=== PATIENT | female | born 1950 | race Caucasian/White ===

== ENCOUNTER 2022-07-27 16:33 | Emergency (ER) | payer MEDICARE, SELFPAY ==
[2022-07-27 16:50] VITALS: BP 155/103; PULSE 99; RESP 18; TEMP 37.2; O2SAT 100
--- NOTE | 2022-07-27 16:54 | PC.NURSE ---
in br to obtain ua spec.
--- NOTE | 2022-07-27 17:50 | ED.FEMALEGU ---
HPI - Female Genitourinary General Chief complaint: Urogenital-Female Stated complaint: uti Time Seen by Provider: 07/27/22 17:20 Source: patient, RN notes reviewed and old records reviewed History of Present Illness HPI Narrative: 71-year-old female who presents to [facility] care with complaints of urgency, frequency, and hesitancy with urination. Patient reports that symptoms started yesterday and patient has had previous history of UTI's. Patient took a dose of amoxicillin at 1630. Patient denies any flank pain. MD elicited complaint: UTI Onset (ago): day(s) (1) Severity scale (1-10): 3 Related Data Allergies Allergy/AdvReac Type Severity Reaction Status Date / Time clindamycin Allergy Unknown Unknown Verified 07/27/22 16:35 vancomycin Allergy Unknown Unknown Verified 07/27/22 16:35 sulfamethoxazole Allergy Unknown Verified 07/27/22 17:20 [From ] trimethoprim [From ] Allergy Unknown Verified 07/27/22 17:20 ct dye Allergy Unknown Uncoded 07/27/22 17:20 Review of Systems Review of Systems: CONSTITUTIONAL: Denies fever, chills, or sweats. EYES: Denies visual changes, redness, or discharge. ENT: Denies rhinorrhea, congestion, sore throat, or otalgia. CARDIOVASCULAR: Denies chest pain, palpitations, or edema. RESPIRATORY: Denies cough or dyspnea. GASTROINTESTINAL: suprapubic abdominal pain,no nausea, vomiting, or diarrhea. GENITOURINARY: Positive for dysuria or hematuria. SKIN: Denies rash or itching. MUSCULOSKELETAL: Denies back pain, joint pain, or myalgia. NEUROLOGIC: Denies headache, numbness, or weakness. PSYCHIATRIC: Denies anxiety or depression. All systems reviewed & are unremarkable except as noted in HPI and below PMFSH Past Medical History Medical History (Updated 07/29/22 @ 16:33 by Eva Max NP) UTI (urinary tract infection) Surgical History Surgical History (Updated 07/29/22 @ 16:33 by Eva Max NP) History of hysterectomy Family History Family History Other Family history of gynecological problem Family history of malignant neoplasm of breast in first degree relative Social History Social History (Updated 07/29/22 @ 16:36 by Eva Max NP) Smoking status: Never smoker Alcohol intake: current Alcohol use details: rare social use Substance use type: does not use Living arrangements: with family Gender identity (if verbalized by the patient): Female Comments At time of signature, agree with nursing past medical, surgical, social and family history. There is no relevant family history pertinent to the presenting complaint Exam Narrative: GENERAL: Well-appearing, well-nourished, and in no acute distress. HEAD: Normocephalic, atraumatic. EYES: PERRLA and EOMI. ENT: Nares clear, no rhinorrhea or epistaxis. Mucous membranes moist.TM's normal with good light reflex, throat pink with no lesions or tonsil swelling. NECK: Supple.no lymphadenopathy CHEST: Clear to auscultation. No respiratory distress.SAO2 100% on room air HEART: Regular rate and rhythm. No murmur heard. Normal peripheral pulses. ABDOMEN: Soft, supra pubic tender, nondistended, normal active bowel sounds.no CVA tenderness noted on examination EXTREMITIES: Normal range of motion. No edema. SKIN: Warm, dry, no rash. NEURO: No focal deficits. Alert and oriented x3. Course Course Level of Care: Express Care Visit Vital Signs Vital signs: Vital Signs Temperature 37.2 C 07/27/22 16:50 Pulse Rate 99 07/27/22 16:50 Respiratory Rate 18 07/27/22 16:50 Blood Pressure 155/103 H 07/27/22 16:50 Pulse Oximetry 100 07/27/22 16:50 Oxygen Delivery Room Air 07/27/22 16:50 Temperature 37.2 C 07/27/22 16:50 Pulse Rate 99 07/27/22 16:50 Respiratory Rate 18 07/27/22 16:50 Blood Pressure 155/103 H 07/27/22 16:50 Pulse Oximetry 100 07/27/22 16:50 Oxygen Delivery Room Air 07/27/22 16:50 MDM
== END 2022-07-27 18:00 | disposition home or self-care (01) ==
PROVIDERS: Emergency Provider Registered Nurse
DX: N39.0 Urinary tract infection, site not specified (principal)
CPT/HCPCS: 81003; 87086; 99213; G0463

== ENCOUNTER 2022-08-26 08:18 | Emergency (ER) | payer MEDICARE, SELFPAY ==
--- NOTE | 2022-08-26 08:23 | ED.FEMALEGU ---
HPI - Female Genitourinary General Chief complaint: Urogenital-Female Stated complaint: Possible UTI Time Seen by Provider: 08/26/22 08:26 Source: patient and RN notes reviewed Mode of arrival: ambulatory Limitations: no limitations History of Present Illness HPI Narrative: 71-year-old female presents to the [facility] with complaints of I think I have a UTI. Patient reports last night she got up to use the bathroom and urinated less than normal. Has had abdominal cramping. No painful urination. No CVA tenderness. Denies fevers. Had similar symptoms 1 month ago, microbiology did not grow out a bacteria. Patient drinking multiple cups of coffee per day. Onset (ago): hour(s) Related Data Allergies Allergy/AdvReac Type Severity Reaction Status Date / Time clindamycin Allergy Unknown Unknown Verified 08/26/22 08:34 vancomycin Allergy Unknown Unknown Verified 08/26/22 08:34 sulfamethoxazole Allergy Unknown Verified 08/26/22 08:34 [From ] trimethoprim [From ] Allergy Unknown Verified 08/26/22 08:34 ct dye Allergy Unknown Uncoded 08/26/22 08:34 Review of Systems Review of Systems: All systems reviewed & are unremarkable except as noted in HPI and below Constitutional: Constitutional: Reports no additional constitutional complaints, Denies chills and Denies fever(s) Eyes: Eyes: Reports no additional eye complaints ENT: Reports system reviewed and no additional complaints, except as documented Cardiovascular: Cardiovascular: Reports no additional cardiovascular complaints Respiratory: Respiratory: Reports no additional respiratory complaints Gastrointestinal: Gastrointestinal: Reports as per HPI Genitourinary: Genitourinary: Reports as per HPI Musculoskeletal: Musculoskeletal: Reports no additional musculoskeletal complaints Integumentary/Breasts: Skin/Breast: Reports system reviewed and no additional complaints, except as docu Neurologic: Reports system reviewed and no additional complaints, except as documented Psychiatric: Psychiatric: Reports no additional psychiatric complaints Allergic/Immunologic: Allergic/Immunologic: Reports no additional allergic/immunologic complaints PMFSH Past Medical History Medical History UTI (urinary tract infection) Surgical History Surgical History History of hysterectomy Family History Family History Other Family history of gynecological problem Family history of malignant neoplasm of breast in first degree relative Social History Social History Smoking status: Never smoker Alcohol intake: current Alcohol use details: rare social use Substance use type: does not use Gender identity (if verbalized by the patient): Female Comments At the time of my signature, I reviewed and agree with the nursing past medical, surgical, social, and family history. There is no relevant family history pertinent to the patient complaint. Exam Const: General: healthy appearing, no acute distress, alert and well nourished Nutritional Appearance: well nourished Orientation/consciousness: patient oriented x3 Limitations: no limitations HENMT: Head: normal to inspection Ears: external ears normal Eyes: General: appearance normal, both eyes and all related structures Pupils: Equal, round and reactive pupils present Neck: Neck: normal visual inspection, no lymphadenopathy and no meningeal signs Chest: Chest palpation & inspection: normal inspection of the chest Resp: Effort & Inspection: normal respiratory effort and no use of accessory muscles Auscultation: clear to auscultation bilaterally, no crackles, no rales, no rhonchi and no wheezes Cardio: Rate: regular rate Rhythm: regular rhythm GI: GI Palp: Yes Soft to palpation and N
[2022-08-26 08:26] VITALS: BP 165/95; PULSE 92; RESP 18; TEMP 37.1; O2SAT 100
== END 2022-08-26 09:08 | disposition home or self-care (01) ==
PROVIDERS: Emergency Provider Nurse Practitioner
DX: R30.0 Dysuria (principal); Z87.440 Personal history of urinary (tract) infections
CPT/HCPCS: 81003; 87086; 99213; G0463

== ENCOUNTER 2022-10-25 08:50 | Emergency (ER) | payer MEDICARE, SELFPAY ==
--- NOTE | 2022-10-25 08:53 | ED.FEMALEGU ---
HPI - Female Genitourinary General Chief complaint: Urogenital-Female Stated complaint: uti Time Seen by Provider: 10/25/22 09:16 Source: patient, RN notes reviewed and old records reviewed Mode of arrival: ambulatory Limitations: no limitations History of Present Illness HPI Narrative: 72-year-old female presents to the [facility] with complaints of low back pain, urinary frequency, urgency burning with urination. Patient states mild symptoms started 2 weeks ago, worse this morning. Denies chest pain or abdominal pain. Denies fevers. Patient denies any past medical or surgical history. Does not have a primary care provider MD elicited complaint: UTI Vaginal discharge: none Related Data Allergies Allergy/AdvReac Type Severity Reaction Status Date / Time clindamycin Allergy Unknown Unknown Verified 10/25/22 09:08 vancomycin Allergy Unknown Unknown Verified 10/25/22 09:08 sulfamethoxazole Allergy Unknown Verified 10/25/22 09:08 [From ] trimethoprim [From ] Allergy Unknown Verified 10/25/22 09:08 ct dye Allergy Unknown Uncoded 10/25/22 09:08 Review of Systems Review of Systems: All systems reviewed & are unremarkable except as noted in HPI and below Constitutional: Constitutional: Reports no additional constitutional complaints Eyes: Eyes: Reports no additional eye complaints ENT: Reports system reviewed and no additional complaints, except as documented Cardiovascular: Cardiovascular: Reports no additional cardiovascular complaints, Denies chest pain and Denies dyspnea Respiratory: Respiratory: Reports no additional respiratory complaints, Denies chest congestion, Denies cough and Denies dyspnea Gastrointestinal: Gastrointestinal: Reports no additional gastrointestinal complaints, Denies abdominal pain, Denies nausea and Denies vomiting Genitourinary: Genitourinary: Reports as per HPI and Reports dysuria Musculoskeletal: Musculoskeletal: Reports no additional musculoskeletal complaints Integumentary/Breasts: Skin/Breast: Reports system reviewed and no additional complaints, except as docu Neurologic: Reports system reviewed and no additional complaints, except as documented Psychiatric: Psychiatric: Reports no additional psychiatric complaints Allergic/Immunologic: Allergic/Immunologic: Reports no additional allergic/immunologic complaints PMFSH Past Medical History Medical History UTI (urinary tract infection) Surgical History Surgical History History of hysterectomy Family History Family History Other Family history of gynecological problem Family history of malignant neoplasm of breast in first degree relative Social History Social History Smoking status: Never smoker Alcohol intake: current Alcohol use details: rare social use Substance use type: does not use Gender identity (if verbalized by the patient): Female Comments At the time of my signature, I reviewed and agree with the nursing past medical, surgical, social, and family history. There is no relevant family history pertinent to the patient complaint. Exam Const: General: cooperative, healthy appearing, comfortable, no acute distress, well developed, alert and well nourished Nutritional Appearance: well nourished Orientation/consciousness: patient oriented x3 Limitations: no limitations HENMT: Head: normal to inspection Ears: hearing grossly normal bilaterally and external ears normal Face/Nose/Sinus: Normal external nose present, Normal nares present, Normal nasal mucous membranes and turbinates present and normal facial exam Face and sinus: normal facial exam Mouth: Yes Normal oral and palatal mucosa present, Yes lip normal and Yes moist mucous membranes Throat: posterior oropharynx yamel
[2022-10-25 09:10] VITALS: BP 179/99; PULSE 92; RESP 16; TEMP 36.9; O2SAT 98
== END 2022-10-25 09:43 | disposition home or self-care (01) ==
PROVIDERS: Emergency Provider Nurse Practitioner
DX: R30.0 Dysuria (principal)
CPT/HCPCS: 81003; 87086; 99213; G0463